=== PATIENT | male | born 1995 | race Caucasian/White ===

== ENCOUNTER 2017-07-20 13:48 | Emergency (ER) | payer OTHER ==
[~2017-07-20] VITALS: Ht 185.4 cm; Wt 90.7 kg
[2017-07-20 14:00] VITALS: BP 162/74
[2017-07-20] MEDS ORDERED: LIDOCAINE 2% 20 ML VIAL. IJ ONE (14:30)
[2017-07-20] MEDS ORDERED: BACI3.5O8 TOP (14:47)
--- NOTE | 2017-07-20 14:48 | PHYS DOC ---
Past Medical History Past Medical History: No Pertinent History Past Surgical History: No Surgical History Alcohol Use: None Drug Use: None Adult General Chief Complaint Chief Complaint: LACERATION/AVULSION HPI HPI Patient is a pleasant 21-year-old male who is an inmate who while at present today attempted to open a door that closed fist over a piece of glass and the plate glass window broke. His fist and forearm with through the glass causing multiple lacerations on the right forearm about 6 inches from the distal end of the ulna and radius. There are multiple jagged areas of skin that are torn there is no foreign body sensation and the bleeding is stopped with a lot of direct pressure. Patient has no loss of sensation or weakness within the extension and flexion at the forearm at the wrist and has no numbness and weakness within the intrinsic muscles of the hand. His tetanus shot is up-to- date patient admits this is not part of a fight bite. Review of Systems Review of Systems Constitutional: Denies fever or chills [] Cardiovascular: No additional information not addressed in HPI [] [Musculoskeletal: Denies back pain or joint pain patient complains of pain in the forearm with range of motion without foreign body sensation.[] Integument: Denies rash or skin lesions [] Neurologic: Denies headache, focal weakness or sensory changes [] All other systems were reviewed and found to be within normal limits, except as documented in this note. Current Medications Current Medications Current Medications Medications (Trade) Dose Ordered Sig/[facility] Start Time Stop Time Status Last Admin Dose Admin Lidocaine HCl 20 ml 1X ONCE 07/20/17 14:30 07/20/17 14:31 DC 07/20/17 14:30 20 ML Allergies Allergies Allergies Coded Allergies Type Severity Reaction Last Updated Verified No Known Drug Allergies 07/20/17 No Physical Exam Physical Exam Vital signs recorded on the chart patient and be hypertensive. Constitutional: Well developed, well nourished, no acute distress, non-toxic appearance. [] Cardiovascular:Heart rate regular rhythm, no murmur [] Lungs & Thorax: Bilateral breath sounds clear to auscultation [] Skin: Warm, dry, no erythema, no rash. [] Extremities: No tenderness, no cyanosis, no clubbing, ROM intact, no edema. Patient has multiple lacerations jagged forms some avulsions 1 linear laceration measuring 3 cm in length and or millimeters in depth and 3 mm in width with no active foreign body noted at the floor or tendon involvement through full range of motion. The floor the wound is visualized. Patient of the wounds are skin avulsions with devitalized tissue noted. Please see procedure note for details. [] Neurologic: Alert and oriented X 3, normal motor function, normal sensory function, no focal deficits noted. [] Psychologic: Affect normal, judgement normal, mood normal. [] Current Patient Data Vital Signs Vital Signs Date Time Temp Pulse Resp B/P (MAP) Pulse Ox O2 Delivery O2 Flow Rate FiO2 07/20/17 14:00 98.5 82 17 162/74 (103) 98 Room Air 98.5 EKG EKG [] Radiology/Procedures Radiology/Procedures [] Course & Med Decision Making Course & Med Decision Making Pertinent Labs and Imaging studies reviewed. (See chart for details) [] Dragon Disclaimer Dragon Disclaimer This electronic medical record was generated, in whole or in part, using a voice recognition dictation system. Departure Departure Impression: Primary Impression: Laceration Additional Impressions: Skin avulsion Avulsion of skin of forearm Disposition: 01 HOME, SELF-CARE Condition: IMPROVED Referrals: NO PCP (PCP) Patient Instructions: Deep Skin Avulsion, Sutured Wound Care Additional Instructions: discharge: I've spoken with the patient and/or caregivers. I've explained the patient's condition, diagnosis and treatment plan based on information available to me at this time. I've answered the patient's and/or caregivers questions and addressed any concerns. The patient and/or caregivers have a good understanding the patient's diagnosis, condition and treatment plan as can be expected at this point. Vital signs have been stabilized. The patient's condition is stable for discharge from the emergency department. The patient will pursue further outpatient evaluation with her primary care provider or other designated consulting physician as outlined in the discharge instructions. Patient and/or caregivers are agreeable to this plan of care and follow-up instructions have been explained in detail. The patient and/or caregivers have received these instructions in written format and expressed understanding of these discharge instructions. The patient and her caregivers are aware that if any significant change in condition or worsening of symptoms should prompt him to immediately return to this of the closest emergency department. If an emergent department is not readily available I would encourage him to call 911. Scripts Bacitracin (BACITRACIN) 3.5 Gm Oint...g. 1 SAMIA TOP TID, #3.5 GM Prov: SUSANA BALDWIN MD 07/20/17 Laceration/Wound Repair Laceration/Wound Repair : Wound Location: upper extremity Wound's Depth, Shape: irregular, flap Wound Explored: clean Betadine Prep?: Yes Anesthesia: 1% Lidocaine Wound Debrided: minimal Wound Repaired With: sutures Suture Size/Type: 4:0, proline Number Deep Layer Sutures: 18 Sterile Dressing Applied?: Yes Splint Applied?: No Sling Applied?: No Problem Qualifiers SUSANA BALDWIN MD Jul 20, 2017 14:48 JERED ARRIAZA APRN Jul 20, 2017 16:03
--- NOTE | 2017-07-20 15:29 | RAD ---
Two-view study of the right forearm History: Laceration injury with glass window. Findings: No acute fracture or dislocation or osteolytic process is seen. Laceration injury of the dorsal aspect of the mid to distal forearm is seen. There is a radiopaque piece of glass measuring 3.5 mm within the superficial soft tissues of the posterior aspect of the midforearm. IMPRESSION: No acute fracture. 3.5 mm radiopaque piece of glass within the dorsal soft tissues..
== END 2017-07-20 15:20 | disposition home or self-care (01) ==
LOC: EEVIPCON 13:48 → ER 13:48
DX: S51.811A Laceration without foreign body of right forearm, initial encounter (principal); W25.XXXA Contact with sharp glass, initial encounter; Y93.89 Activity, other specified; Y92.89 Other specified places as the place of occurrence of the external cause; Y99.8 Other external cause status
CPT/HCPCS: 12032; 73090; 99284-25; J2001